=== PATIENT | male | born 1945 | race Caucasian/White ===

== ENCOUNTER → 2019-12-20 | Outpatient (RCR) | payer MEDICARE, OTHER ==
[~2019-12-20] MED LIST: LIDOCAINE VISC 2% SOLN 15 ML UDC ONE; MUPIROCIN 2% OINT 22 GM TUBE ONE; SILVER SULFADIAZINE 50GM CREAM ONE
== END ==
LOC: WCC 11-29 14:43
PROVIDERS: ATTEND Podiatrist
DX: E11.621 Type 2 diabetes mellitus with foot ulcer (principal); L97.421 Non-pressure chronic ulcer of left heel and midfoot limited to breakdown of skin; D00.00 Carcinoma in situ of oral cavity, unspecified site; M79.609 Pain in unspecified limb; I10 Essential (primary) hypertension; K74.1 Hepatic sclerosis
CPT/HCPCS: 36415; 82948; 87071; 87075; 87186; 87205

== ENCOUNTER 2020-01-19 11:12 | Outpatient (RCR) | payer MEDICARE, OTHER ==
[~2020-01-19 11:12] MED LIST changes: +GENTAMICIN SULFATE 0.3% OPTH OINT 3.5GM TUBE ONE; +GENTAMICIN SULFATE 15 GM CR TP ONE; -LIDOCAINE VISC 2% SOLN 15 ML UDC ONE; +LIDOCAINE/PRILOCAINE 2.5-2.5% KIT ONE; -MUPIROCIN 2% OINT 22 GM TUBE ONE
[2020-01-19] MEDS ORDERED: GENTAMICIN SULFATE 15 GM CR TP ONE ×2 (16:28→17:08)
[2020-01-19] MEDS ORDERED: SILVER SULFADIAZINE 50GM CREAM ONE ×2 (16:28→17:08)
== END 2020-01-20 ==
LOC: WCC 11:12
PROVIDERS: ATTEND Podiatrist
DX: E11.621 Type 2 diabetes mellitus with foot ulcer (principal); L97.421 Non-pressure chronic ulcer of left heel and midfoot limited to breakdown of skin; M79.609 Pain in unspecified limb; K74.1 Hepatic sclerosis; D00.00 Carcinoma in situ of oral cavity, unspecified site; I10 Essential (primary) hypertension; B96.5 Pseudomonas (aeruginosa) (mallei) (pseudomallei) as the cause of diseases classified elsewhere

== ENCOUNTER 2020-02-09 13:31 | Outpatient (RCR) | payer MEDICARE, OTHER ==
[~2020-02-09 13:31] MED LIST changes: -GENTAMICIN SULFATE 0.3% OPTH OINT 3.5GM TUBE ONE; +LIDOCAINE VISC 2% SOLN 15 ML UDC ONE; -LIDOCAINE/PRILOCAINE 2.5-2.5% KIT ONE; -SILVER SULFADIAZINE 50GM CREAM ONE
== END 2020-02-19 ==
LOC: WCC 13:31
PROVIDERS: ATTEND Podiatrist
DX: E11.621 Type 2 diabetes mellitus with foot ulcer (principal); L97.411 Non-pressure chronic ulcer of right heel and midfoot limited to breakdown of skin; L97.421 Non-pressure chronic ulcer of left heel and midfoot limited to breakdown of skin; M79.609 Pain in unspecified limb; D00.00 Carcinoma in situ of oral cavity, unspecified site; K74.1 Hepatic sclerosis; I10 Essential (primary) hypertension; B96.5 Pseudomonas (aeruginosa) (mallei) (pseudomallei) as the cause of diseases classified elsewhere
CPT/HCPCS: 83036; 84134

== ENCOUNTER 2020-02-14 15:27 | Outpatient (RCR) | payer MEDICARE, OTHER | END 2020-02-19 | LOC: WCC 15:27 | PROVIDERS: ATTEND Podiatrist | DX: E11.621 Type 2 diabetes mellitus with foot ulcer (principal); L97.421 Non-pressure chronic ulcer of left heel and midfoot limited to breakdown of skin; M79.609 Pain in unspecified limb; K74.1 Hepatic sclerosis; D00.00 Carcinoma in situ of oral cavity, unspecified site; I10 Essential (primary) hypertension | CPT/HCPCS: 15275; 99212; Q4101 ==

== ENCOUNTER 2020-03-20 14:58 | Outpatient (RCR) | payer MEDICARE, OTHER ==
[~2020-03-20 14:58] MED LIST changes: -GENTAMICIN SULFATE 15 GM CR TP ONE; +LIDOCAINE/PRILOCAINE 2.5-2.5% KIT ONE; +MUPIROCIN 2% OINT 22 GM TUBE ONE
== END 2020-03-21 ==
LOC: WCC 14:58
PROVIDERS: ATTEND Podiatrist
DX: E11.621 Type 2 diabetes mellitus with foot ulcer (principal); L97.421 Non-pressure chronic ulcer of left heel and midfoot limited to breakdown of skin; D00.00 Carcinoma in situ of oral cavity, unspecified site; I10 Essential (primary) hypertension; K74.1 Hepatic sclerosis; M79.609 Pain in unspecified limb
CPT/HCPCS: 11730; 15275 ×3; 87102; 87206; 97597; 99212; 99213 ×3; Q4101 ×3

== ENCOUNTER 2020-04-10 15:22 | Outpatient (RCR) | payer MEDICARE, OTHER ==
[~2020-04-10 15:22] MED LIST changes: -LIDOCAINE VISC 2% SOLN 15 ML UDC ONE; -LIDOCAINE/PRILOCAINE 2.5-2.5% KIT ONE; +MINERAL OIL/PETROLAT/GLYCERI 2OZ CRM ONE; -MUPIROCIN 2% OINT 22 GM TUBE ONE
== END 2020-04-21 ==
LOC: WCC 15:22
PROVIDERS: ATTEND Podiatrist
DX: E11.621 Type 2 diabetes mellitus with foot ulcer (principal); S91.104A Unspecified open wound of right lesser toe(s) without damage to nail, initial encounter; S91.105A Unspecified open wound of left lesser toe(s) without damage to nail, initial encounter; M79.609 Pain in unspecified limb; L60.1 Onycholysis; D00.00 Carcinoma in situ of oral cavity, unspecified site; W45.8XXA Other foreign body or object entering through skin, initial encounter; I10 Essential (primary) hypertension; K74.1 Hepatic sclerosis; W27.8XXA Contact with other nonpowered hand tool, initial encounter

== ENCOUNTER 2021-02-05 13:58 | Outpatient (RCR) | payer MEDICARE, OTHER | END 2021-02-18 | LOC: WCC 13:58 | PROVIDERS: ATTEND Podiatrist | DX: E11.621 Type 2 diabetes mellitus with foot ulcer (principal); L60.1 Onycholysis; L97.514 Non-pressure chronic ulcer of other part of right foot with necrosis of bone; L03.031 Cellulitis of right toe; D00.00 Carcinoma in situ of oral cavity, unspecified site; M79.609 Pain in unspecified limb; I10 Essential (primary) hypertension; K74.1 Hepatic sclerosis; W22.8XXA Striking against or struck by other objects, initial encounter; W27.8XXA Contact with other nonpowered hand tool, initial encounter; W45.8XXA Other foreign body or object entering through skin, initial encounter | CPT/HCPCS: 88304; 88311 ==

== ENCOUNTER → 2021-02-18 | Outpatient (CLI) | payer MEDICARE, OTHER ==
[2021-02-18 12:38] LABS: HEMOGLOBIN 12.8 g/dL (14.0-18.0)
[2021-02-18 13:03] LABS: CREATININE, SERUM 0.95 mg/dL (0.72-1.25)
== END ==
LOC: MRI 12:04
PROVIDERS: ATTEND Internal Medicine Infectious Disease
DX: E11.621 Type 2 diabetes mellitus with foot ulcer (principal); L97.514 Non-pressure chronic ulcer of other part of right foot with necrosis of bone
CPT/HCPCS: 36415; 36569; 71045; 82565; 84520; 85014; 85049

== ENCOUNTER 2021-03-19 14:04 | Outpatient (RCR) | payer MEDICARE, OTHER ==
[~2021-03-19 14:04] MED LIST changes: +GENTAMICIN SULFATE 15 GM CR TP ONE; +LIDOCAINE 1% W/EPINEPHRINE 20 ML VIAL ONE; +LIDOCAINE VISC 2% SOLN 15 ML UDC ONE; +LIDOCAINE/PRILOCAINE 2.5-2.5% KIT ONE; -MINERAL OIL/PETROLAT/GLYCERI 2OZ CRM ONE; +MUPIROCIN 2% OINT 22 GM TUBE ONE
== END 2021-03-21 ==
LOC: WCC 14:04
PROVIDERS: ATTEND Podiatrist
DX: E11.621 Type 2 diabetes mellitus with foot ulcer (principal); M86.18 Other acute osteomyelitis, other site; M86.671 Other chronic osteomyelitis, right ankle and foot; L60.1 Onycholysis; L97.514 Non-pressure chronic ulcer of other part of right foot with necrosis of bone; L03.031 Cellulitis of right toe; D00.00 Carcinoma in situ of oral cavity, unspecified site; M79.609 Pain in unspecified limb; I10 Essential (primary) hypertension; K74.1 Hepatic sclerosis; W22.8XXA Striking against or struck by other objects, initial encounter; W27.8XXA Contact with other nonpowered hand tool, initial encounter; W45.8XXA Other foreign body or object entering through skin, initial encounter
CPT/HCPCS: 28820; 88304; 88305; 88311

== ENCOUNTER 2021-03-28 10:19 | Outpatient (RCR) | payer MEDICARE, OTHER ==
[2021-03-28] MEDS ORDERED: MUPIROCIN 2% OINT 22 GM TUBE ONE ×2 (13:09→13:20)
== END 2021-04-21 ==
LOC: WCC 10:19
PROVIDERS: ATTEND Podiatrist
DX: E11.621 Type 2 diabetes mellitus with foot ulcer (principal); D00.00 Carcinoma in situ of oral cavity, unspecified site; L60.1 Onycholysis; M86.18 Other acute osteomyelitis, other site; M86.671 Other chronic osteomyelitis, right ankle and foot; L97.511 Non-pressure chronic ulcer of other part of right foot limited to breakdown of skin; L97.514 Non-pressure chronic ulcer of other part of right foot with necrosis of bone; L03.031 Cellulitis of right toe; M79.609 Pain in unspecified limb; I10 Essential (primary) hypertension; K74.1 Hepatic sclerosis; W22.8XXA Striking against or struck by other objects, initial encounter; W27.8XXA Contact with other nonpowered hand tool, initial encounter; W45.8XXA Other foreign body or object entering through skin, initial encounter